=== PATIENT | female | born 2000 | race Caucasian/White ===

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

== ENCOUNTER 2021-09-21 10:50 | Outpatient (CLI) | payer BC | END 2021-09-21 10:51 | disposition home or self-care (01) | LOC: BICRAD 10:50 | PROVIDERS: ATTEND Internal Medicine | DX: M25.531 Pain in right wrist (principal) ==

== ENCOUNTER 2024-08-27 07:02 | Outpatient (CLI) | payer BC | END 2024-08-27 07:03 | disposition home or self-care (01) | LOC: BICULT 07:02 | PROVIDERS: ATTEND Internal Medicine | DX: R59.0 Localized enlarged lymph nodes (principal) | CPT/HCPCS: 76999 ==